=== PATIENT | male | born 1960 | race Caucasian/White ===

== ENCOUNTER 2016-09-25 20:09 | Emergency (ER) | payer OTHER ==
[~2016-09-25] VITALS: Ht 175.3 cm; Wt 73.9 kg
[2016-09-25 20:32] VITALS: BP 134/82
--- NOTE | 2016-09-25 22:06 | NUR ---
AMBULATED TO ER BED 4
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
[2016-09-25] MEDS ORDERED: METHOCARBAMOL 500 MG TAB PO ONE (22:35)
[2016-09-25] MEDS ORDERED: KETOROLAC 30 MG/ML VIAL IM ONE (22:35)
[2016-09-25 23:41] VITALS: BP 114/73
--- NOTE | 2016-09-25 23:41 | NUR ---
Patient discharged with v/s stable. Written and verbal after care instructions given and explained. Patient alert, oriented and verbalized understanding of instructions. Ambulatory with steady gait. All questions addressed prior to discharge. ID band removed. Patient advised to follow up with PMD. Rx of ROBAXIN 500MG, AND MOTRIN 600MG given. Patient educated on indication of medication including possible reaction and side effects. Opportunity to ask questions provided and answered.
== END 2016-09-25 23:41 | disposition home or self-care (01) ==
LOC: MED 20:09
DX: S16.1XXA Strain of muscle, fascia and tendon at neck level, initial encounter (principal); E78.00 Pure hypercholesterolemia, unspecified; V89.2XXA Person injured in unspecified motor-vehicle accident, traffic, initial encounter; Y93.89 Activity, other specified; Y92.411 Interstate highway as the place of occurrence of the external cause; Y99.8 Other external cause status
CPT/HCPCS: 70450; 72125; 96372; 99284; J1885

== ENCOUNTER 2017-04-04 18:49 | Emergency (ER) | payer OTHER ==
[~2017-04-04] VITALS: Ht 177.8 cm; Wt 73.7 kg
[2017-04-04 18:58] VITALS: BP 137/73
--- NOTE | 2017-04-04 19:26 | NUR ---
PT TAKEN TO BED 7
--- NOTE | 2017-04-04 19:27 | NUR ---
Patient being evaluated by Dr. Sánchez at bedside.
[2017-04-04 19:30] VITALS: BP 137/73
--- NOTE | 2017-04-04 19:31 | NUR ---
56/M c/o SOB that started this morning. Denies chest pain. Denies N/V/D. AOX4, ambulates withs teady gait. VSS
[2017-04-04] MEDS ORDERED: LORazepam 2 MG/ML VIAL IVP ONE (19:40)
[2017-04-04] MEDS ORDERED: NACL 0.9% 1,000 ML IV ONE (19:40)
[2017-04-04] MEDS ORDERED: ASPIRIN 81 MG TAB.CHEW PO ONE (19:40)
--- NOTE | 2017-04-04 19:53 | NUR ---
X-Ray at bedside.
[2017-04-04 20:16] LABS: HEMATOCRIT 42.9 % (36-52); HEMOGLOBIN 14.3 g/dL (12.0-18.0); MEAN CORPUSCULAR HEMOGLOBIN 29 pg (27-31); MEAN CORPUSCULAR HGB CONC 33 g/dL (33-37); MEAN CORPUSCULAR VOLUME 88 fL (80-94); PLATELET COUNT (AUTO) 160 K/uL (140-450); RED BLOOD CELL COUNT(AUTO) 4.87 MIL/uL (4.20-6.10); RED CELL DISTRIBUTION WIDTH 11.9 % (11.6-13.7); WHITE BLOOD COUNT (AUTO) 6.5 K/uL (4.8-10.8)
[2017-04-04 20:21] LABS: ANION GAP 11.8 (8-16); CALCIUM 8.7 mg/dL (8.5-10.1); CARBON DIOXIDE 26.6 mmol/L (21-32); POTASSIUM 3.4 mmol/L (3.5-5.1)
[2017-04-04 20:26] LABS: ALBUMIN 3.9 g/dL (3.4-5.0); TOTAL BILIRUBIN 0.5 mg/dL (0.0-1.0)
[2017-04-04 20:28] LABS: EOSINOPHILS % (MANUAL) 4 % (0-4); LYMPHOCYTES % (MANUAL) 43 % (20-46); MONOCYTES % (MANUAL) 3 % (5-12); NEUTROPHILS % (MANUAL) 50 (43-65); PLATELET ESTIMATE ADEQUATE
[2017-04-04 20:30] LABS: INR 1.1 (0.8-1.2); PARTIAL THROMBOPLASTIN TIME 28.6 secs (22-35.6); PROTHROMBIN TIME 11.6 secs (10.8-13.4)
--- NOTE | 2017-04-04 21:10 | NUR ---
Patient appears to be resting comfortably in bed. Vital Signs within normal limits. Respirations even and unlabored.
--- NOTE | 2017-04-04 22:07 | NUR ---
Chart checked and completed. The patient's care was reviewed and supervised by Erin Barron RN.
== END 2017-04-04 22:07 | disposition home or self-care (01) ==
LOC: MED 18:49
DX: F41.9 Anxiety disorder, unspecified (principal); R03.0 Elevated blood-pressure reading, without diagnosis of hypertension
CPT/HCPCS: 36415; 71010; 80053; 84484; 85025; 85610; 85730; 93005; 96361; 96374; 99285; J2060; J7030; Q0092

== ENCOUNTER 2019-05-27 18:45 | Emergency (ER) | payer OTHER ==
[~2019-05-27] VITALS: Ht 177.8 cm; Wt 75.3 kg
[2019-05-27 18:46] VITALS: BP 148/69
[2019-05-27 18:52] VITALS: BP 148/69
[2019-05-27] MEDS ORDERED: LORazepam 1 MG TAB PO ONE (19:35)
[2019-05-27 20:09] VITALS: BP 148/69
== END 2019-05-27 20:08 | disposition home or self-care (01) ==
LOC: MED 18:45
DX: F41.9 Anxiety disorder, unspecified (principal); G47.00 Insomnia, unspecified
CPT/HCPCS: 99284

== ENCOUNTER 2022-10-14 06:20 | Day surgery (SDC) | payer OTHER ==
[~2022-10-14] VITALS: Ht 175.3 cm; Wt 73.9 kg
[2022-10-14] MEDS ORDERED: MIDAZOLAM 5 MG/5 ML VIAL ONE (07:15)
[2022-10-14] MEDS ORDERED: fentaNYL citrate 0.05 MG/ML VIAL ONE (07:15)
[2022-10-14] MEDS ORDERED: diphenhydrAMINE 50 MG/ML VIAL ONE (07:15)
[2022-10-14] MEDS ORDERED: LIDOCAINE 2% 100 MG/5 ML UJET TP ONE (07:15)
[2022-10-14] MEDS ORDERED: fentaNYL citrate 0.05 MG/ML VIAL IVP ONE (08:20)
[2022-10-14] MEDS ORDERED: diphenhydrAMINE 50 MG/ML VIAL IVP ONE (08:20)
[2022-10-14] MEDS ORDERED: MIDAZOLAM 5 MG/5 ML VIAL IV ONE (08:20)
== END 2022-10-14 08:45 | disposition home or self-care (01) ==
LOC: MMU 06:20 → MOR 06:20 → MMU 06:44 → MOR 08:45
PROVIDERS: ATTEND Internal Medicine Gastroenterology
DX: K59.00 Constipation, unspecified (principal); D12.2 Benign neoplasm of ascending colon; K31.89 Other diseases of stomach and duodenum; Z80.0 Family history of malignant neoplasm of digestive organs; K21.9 Gastro-esophageal reflux disease without esophagitis; Z86.010 Personal history of colon polyps; I25.10 Atherosclerotic heart disease of native coronary artery without angina pectoris; I10 Essential (primary) hypertension; E78.5 Hyperlipidemia, unspecified; K44.9 Diaphragmatic hernia without obstruction or gangrene; Z95.5 Presence of coronary angioplasty implant and graft; Z79.899 Other long term (current) drug therapy; Z20.822 Contact with and (suspected) exposure to COVID-19
CPT/HCPCS: 43239; 45385; 88305; 88312; 88313; 88342; J1200; J2250; J3010